=== PATIENT | male | born 1985 | race Hispanic/Latino ===

== ENCOUNTER 2018-07-10 23:00 | Emergency (ER) | payer OTHER ==
[2018-07-10 23:26] VITALS: BP 119/80; PULSE 71; RESP 18; TEMP 97.9; O2SAT 100
[2018-07-10] MEDS ORDERED: Sodium Chloride 0.9% 1,000 ML IV STA (23:59)
--- NOTE | 2018-07-11 | ED PDOC ---
HPI: Psych/Substance Abuse Time Seen by Provider: 07/10/18 23:30 Chief Complaint (Nursing): Substance Abuse Chief Complaint (Provider): Detox History Per: Patient Additional Complaint(s): 33 yo male, reports a PMH of opiate addition, presents today asking for detox. Pt reports he uses Oxys daily, up to 30 tablets and also heroin. Pt admits he last used yesterday. Pt reports he wants to get better and started Suboxone today. Pt denies any suicidal or homicidal ideations. Pt reports that this morning he had nausea and vomited 2 x and as having abdominal pains; however, all subsided after suboxone. Pt without any complaints complaints at this time Past Medical History Reviewed: Nursing Documentation, Vital Signs Vital Signs: Last Vital Signs Temp 97.9 F 07/10/18 23:21 Pulse 71 07/10/18 23:21 Resp 18 07/10/18 23:21 BP 119/80 07/10/18 23:21 Pulse Ox 100 07/10/18 23:21 - Medical History PMH: No Chronic Diseases - Surgical History Surgical History: No Surg Hx - Family History Family History: States: Unknown Family Hx - Living Arrangements Living Arrangements: With Family - Social History Current smoker - smoking cessation education provided: No Alcohol: Social Drugs: Cocaine, Opiates - Allergies Allergies/Adverse Reactions: Allergies Allergy/AdvReac Type Severity Reaction Status Date / Time No Known Allergies Allergy Verified 07/10/18 23:26 Review of Systems ROS Statement: Except As Marked, All Systems Reviewed And Found Negative Physical Exam - Reviewed Nursing Documentation Reviewed: Yes Vital Signs Reviewed: Yes - Physical Exam Appears: Positive for: Well, Non-toxic, No Acute Distress Head Exam: Positive for: ATRAUMATIC, NORMAL INSPECTION, NORMOCEPHALIC Skin: Positive for: Normal Color, Warm, DRY Eye Exam: Positive for: EOMI, Normal appearance, PERRL ENT: Positive for: Normal ENT Inspection Neck: Positive for: Normal, Painless ROM Cardiovascular/Chest: Positive for: Regular Rate, Rhythm Respiratory: Positive for: CNT, Normal Breath Sounds Gastrointestinal/Abdominal: Positive for: Normal Exam, Soft Back: Positive for: Normal Inspection Extremity: Positive for: Normal ROM Neurologic/Psych: Positive for: Alert, Oriented - Laboratory Results Result Diagrams: 07/11/18 00:06 - ECG O2 Sat by Pulse Oximetry: 100 Medical Decision Making Medical Decision Making: Diagnostics ordered and Pt made aware that we do not have a Detox Center on site. Pt then asking to leave. pt offered crisis eval, in additional to medical intervention and declined. asking to leave ED at this time and will go to another site who offers detox Disposition - Clinical Impression Clinical Impression: Opiate addiction - Patient ED Disposition Is Patient to be Admitted: No - Disposition Disposition: Routine/Home Disposition Time: 01:40 Condition: STABLE Instructions: Drug Abuse and Drug Addiction (DC) Forms: [employer] ([place])
[2018-07-11 01:19] LABS: BASO % 0.5 % (0.0-2.0); EOS # 0.3 K/uL (0.0-0.7); EOS % 3.9 % (0.0-4.0); HEMOGLOBIN 12.8 g/dL (12.0-18.0); LYMPH # 2.6 K/uL (1.0-4.3); LYMPH % 38.3 % (20.0-40.0); MEAN CELL VOLUME 80.4 fl (80.0-94.0); MEAN CORPUSCULAR HEMOGLOBIN 26.8 pg (27.0-31.0); MEAN CORPUSCULAR HGB CONC 33.3 g/dL (33.0-37.0); MONO # 0.6 K/uL (0.0-0.8); MONO % 8.2 % (0.0-10.0); NEUT # 3.3 K/uL (1.8-7.0); NEUT % 49.1 % (50.0-75.0); RBC 4.77 Mil/uL (4.40-5.90); RED CELL DISTRIBUTION WIDTH 14.2 % (11.5-14.5); WHITE BLOOD COUNT 6.8 K/uL (4.8-10.8)
[2018-07-11 01:29] LABS: ALB/GLOB RATIO 1.6 (1.0-2.1); ALBUMIN 4.4 g/dL (3.5-5.0); ALT/SGPT 38 U/L (21-72); AST/SGOT 27 U/L (17-59); BLOOD UREA NITROGEN 27 mg/dl (9-20); CALCIUM 9.8 mg/dL (8.4-10.2); GFR AFRICAN-AMERICAN > 60; GFR NON-AFRICAN AMERICAN > 60
--- NOTE | 2018-07-11 09:02 | CARD ---
APPROVED REPORT Date of service: 07/11/2018 EKG Measurement Heart [id number] [id number] <Conclusion> Sinus bradycardia late transition Otherwise normal ECG
--- NOTE | 2018-07-11 09:55 | RAD ---
Date of service: 07/11/2018 PROCEDURE: CHEST RADIOGRAPH, 1 VIEW HISTORY: med screening COMPARISON: None available. FINDINGS: LUNGS: Clear. PLEURA: No pneumothorax or pleural fluid seen. CARDIOVASCULAR: Normal. OSSEOUS STRUCTURES: No significant abnormalities. VISUALIZED UPPER ABDOMEN: Normal. OTHER FINDINGS: None. IMPRESSION: No active disease.
== END 2018-07-11 01:12 | disposition home or self-care (01) ==
LOC: H.ER 23:00 → EDBD 23:00 → MERGE 23:00 → H.ER 07-11 01:12
DX: F11.20 Opioid dependence, uncomplicated (principal)
CPT/HCPCS: 71045; 80053; 80320; 85025; 93005; 99282; J2405; J7030

== ENCOUNTER 2018-07-12 00:26 | Emergency (ER) | payer OTHER ==
[2018-07-12 01:13] VITALS: BP 119/78; PULSE 78; RESP 16; TEMP 97.8; O2SAT 100
--- NOTE | 2018-07-12 02:08 | ED PDOC ---
HPI: Psych/Substance Abuse Time Seen by Provider: 07/12/18 00:58 Chief Complaint (Nursing): Psychiatric Evaluation Chief Complaint (Provider): Detox History Per: Patient History/Exam Limitations: no limitations Current Symptoms Are (Timing): Still Present Modifying Factor(s): Narcotics Associated Symptoms: Suicidal Thoughts Additional Complaint(s): 33yo male, comes to ER for evaluation requesting detox from oxycodone and heroin. Patient states he takes "30 oxys or more" per day and today felt "like jumping out the window." He states he was taking suboxone, with no relief of symptoms. He denies any medical complaints. Past Medical History Reviewed: Historical Data, Nursing Documentation, Vital Signs Vital Signs: Last Vital Signs Temp 97.8 F 07/12/18 01:02 Pulse 78 07/12/18 01:02 Resp 16 07/12/18 01:02 BP 119/78 07/12/18 01:02 Pulse Ox 100 07/12/18 01:02 - Medical History PMH: No Chronic Diseases - Surgical History Surgical History: No Surg Hx - Family History Family History: States: Unknown Family Hx - Living Arrangements Living Arrangements: With Family - Social History Current smoker - smoking cessation education provided: No Alcohol: Social Drugs: Opiates, Prescription medications - Allergies Allergies/Adverse Reactions: Allergies Allergy/AdvReac Type Severity Reaction Status Date / Time No Known Allergies Allergy Verified 07/10/18 23:26 Review of Systems ROS Statement: Except As Marked, All Systems Reviewed And Found Negative Constitutional: Negative for: Fever, Chills Cardiovascular: Negative for: Chest Pain Respiratory: Negative for: Shortness of Breath Gastrointestinal: Negative for: Abdominal Pain Psych: Positive for: Suicidal ideation, Withdrawal Physical Exam - Reviewed Nursing Documentation Reviewed: Yes Vital Signs Reviewed: Yes - Physical Exam Appears: Positive for: Non-toxic Head Exam: Positive for: ATRAUMATIC, NORMAL INSPECTION, NORMOCEPHALIC Skin: Positive for: Normal Color Eye Exam: Positive for: Normal appearance, EOMI Neck: Positive for: Normal, Supple Cardiovascular/Chest: Positive for: Regular Rate, Rhythm. Negative for: Murmur Respiratory: Positive for: Normal Breath Sounds. Negative for: Respiratory Distress Pulses-Radial (L): 2+ Pulses-Radial (R): 2+ Gastrointestinal/Abdominal: Positive for: Normal Exam, Soft. Negative for: Tenderness Back: Positive for: Normal Inspection Extremity: Positive for: Normal ROM. Negative for: Pedal Edema Neurologic/Psych: Positive for: Alert, Oriented, Mood/Affect (calm and cooperative). Negative for: Motor/Sensory Deficits - ECG O2 Sat by Pulse Oximetry: 100 (RA) Pulse Ox Interpretation: Normal Medical Decision Making Medical Decision Making: Impression: Crisis evaluation Plan: -- Crisis evaluation Prior records reviewed, patient in this ER yesterday with similar complaints. At that time, patient elected to leave the ER after he was told there was no inpatient detox facility in this hospital. [id number] Patient seen and evaluated by cotton farmworker. Patient given outpatient referral for detox during his visit yesterday. Per Dr. Swanson, patient stable for discharge home. Diagnosis: Opioid use disorder Scribe Attestation: Documented by Jagruti Bruce, acting as a scribe for Renny Russell MD. Provider Scribe Attestation: All medical record entries made by the Scribe were at my direction and personally dictated by me. I have reviewed the chart and agree that the record accurately reflects my personal performance of the history, physical exam, medical decision making, and the department course for this patient. I have also personally directed, reviewed, and agree with the discharge instructions and disposition. Disposition - Clinical Impression Clinical Impression: Opiate addiction - Disposition Disposition: Routine/Home Disposition Time: 02:22 Condition: IMPROVED Additional Instructions: FOLLOW UP WITH OUTPATIENT SERVICES RETURN TO THE ED WITH ANY WORSENING OR CONCERNING SYMPTOMS Instructions: Opioid Use Disorder Forms: [employer] ([place])
== END 2018-07-12 03:04 | disposition home or self-care (01) ==
LOC: MERGE 00:26 → H.ER 00:26
DX: F11.20 Opioid dependence, uncomplicated (principal)

== ENCOUNTER 2018-09-18 11:05 | Emergency (ER) | payer OTHER ==
[2018-09-18 11:34] VITALS: RESP 18; O2SAT 98
--- NOTE | 2018-09-18 12:03 | ED PDOC ---
HPI: Psych/Substance Abuse Time Seen by Provider: 09/18/18 11:34 Chief Complaint (Nursing): Substance Abuse Chief Complaint (Provider): Medical and psych clearance History Per: Patient History/Exam Limitations: no limitations Onset/Duration Of Symptoms: Hrs (today) Associated Symptoms: denies: Suicidal Thoughts, Suicidal Plan Additional Complaint(s): Ion Rodriguez is a 33 year old male, with no significant past medical history, who was brought to the emergency department by Betzaida RAMIREZ for medical and psychiatric clearance. Patient initially ran away from the creative manager but came back and was arrested because he was initially uncooperative. Patient admits to using cocaine and opiates. He denies any Tylenol, Motrin or any other drugs or alcohol. He denies any fever, chills, cough, congestion, nausea, vomit, diarrhea, abdominal pain, chest pain, shortness of breath, headache, dizziness, numbness or tingling, weakness, suicidal or homicidal ideation. No further med ical complaints. PMD: None provided. Past Medical History Reviewed: Historical Data, Nursing Documentation, Vital Signs Vital Signs: Last Vital Signs Temp 97.8 F 09/18/18 11:30 Pulse 130 H 09/18/18 11:30 Resp 18 09/18/18 11:30 BP 134/92 H 09/18/18 11:30 Pulse Ox 98 09/18/18 11:30 - Medical History PMH: No Chronic Diseases Denies: Diabetes, Hepatitis, HIV, HTN, Seizures, Sexually Transmitted Disease - Surgical History Surgical History: No Surg Hx - Family History Family History: States: Unknown Family Hx - Social History Current smoker - smoking cessation education provided: No Alcohol: Social Drugs: Cocaine, Opiates - Allergies Allergies/Adverse Reactions: Allergies Allergy/AdvReac Type Severity Reaction Status Date / Time No Known Allergies Allergy Verified 09/18/18 11:30 Review of Systems ROS Statement: Except As Marked, All Systems Reviewed And Found Negative Constitutional: Negative for: Fever, Chills ENT: Negative for: Nose Congestion Cardiovascular: Negative for: Chest Pain Respiratory: Negative for: Cough, Shortness of Breath Gastrointestinal: Negative for: Nausea, Vomiting, Abdominal Pain, Diarrhea Neurological: Negative for: Weakness, Numbness (tingling), Headache, Dizziness Psych: Negative for: Suicidal ideation (or Homicidal ideation) Physical Exam - Reviewed Nursing Documentation Reviewed: Yes Vital Signs Reviewed: Yes - Physical Exam Appears: Positive for: No Acute Distress Head Exam: Positive for: ATRAUMATIC, NORMAL INSPECTION, NORMOCEPHALIC Skin: Positive for: Normal Color, Warm, Dry Eye Exam: Positive for: Normal appearance, EOMI, PERRL ENT: Positive for: Normal ENT Inspection Neck: Positive for: Painless ROM, Supple Cardiovascular/Chest: Positive for: Regular Rate, Rhythm. Negative for: Murmur Respiratory: Positive for: Normal Breath Sounds. Negative for: Respiratory Distress Gastrointestinal/Abdominal: Positive for: Normal Exam, Soft. Negative for: Tenderness, Guarding, Rebound Back: Positive for: Normal Inspection. Negative for: L CVA Tenderness, R CVA Tenderness, Vertebral Tenderness Extremity: Positive for: Normal ROM (upper and lower extremities). Negative for: Deformity, Swelling Neurologic/Psych: Positive for: Alert, Oriented, Gait (steady). Negative for: Motor/Sensory Deficits, Aphasia, Facial Droop - ECG ECG: Positive for: Interpreted By Me, Viewed By Me ECG Rhythm: Positive for: Normal QRS, Normal ST Segment, Sinus Rhythm O2 Sat by Pulse Oximetry: 98 (RA) Pulse Ox Interpretation: Normal - Progress ED Course And Treament: 1430: Stable. Cooperative. Crisis saw pt. Does not meet criteria for admit. Fu with pcp. AAOx3. Dc to police custody. Ambulated with no issues. Medical Decision Making Medical Decision Making: Time: 11:34 Initial Impression: Medical and psychiatric clearance Initial Plan: --EKG --Drug screen, urine --Crisis evaluation --Reevaluation ----- Scribe Attestation: Documented by Ortega Alexander, acting as a scribe for Andrea Davis MD. Provider Scribe Attestation: All medical record entries made by the Scribe were at my direction and personally dictated by me. I have reviewed the chart and agree that the record accurately reflects my personal performance of the history, physical exam, medical decision making, and the department course for this patient. I have also personally directed, reviewed, and agree with the discharge instructions and disposition. Disposition - Clinical Impression Clinical Impression: Cocaine abuse - Patient ED Disposition Is Patient to be Admitted: No Counseled Patient/Family Regarding: Diagnosis, Need For Followup - Disposition Referrals: [facility] [Outside] - 09/20/18 Disposition: Routine/Home Disposition Time: 14:31 Condition: STABLE Additional Instructions: Return if not better in 3 days. You are medically and psychiatrically cleared for incarceration. Instructions: Drug Abuse and Drug Addiction (DC)
[2018-09-18 14:47] VITALS: BP 125/61; PULSE 74; TEMP 99
[2018-09-18 14:53] LABS: BARBITURATES, UR NEGATIVE (NEGATIVE)
[2018-09-18 15:02] LABS: BENZODIAZEPINES, UR NEGATIVE (NEGATIVE); OPIATES, UR POSITIVE (NEGATIVE); PHENCYCLIDINE, UR NEGATIVE (NEGATIVE)
--- NOTE | 2018-09-19 02:58 | CARD ---
APPROVED REPORT Date of service: 09/18/2018 EKG Measurement Heart [id number] <Conclusion> Sinus tachycardia Otherwise normal ECG
== END 2018-09-18 14:46 | disposition home or self-care (01) ==
LOC: H.ER 11:05
DX: F14.10 Cocaine abuse, uncomplicated (principal)